=== PATIENT | male | born 1945 | race Caucasian/White ===

== ENCOUNTER 2017-12-29 22:26 | Emergency (ER) | payer MEDICARE ==
[~2017-12-29] VITALS: Ht 170.2 cm; Wt 117.9 kg
[2017-12-29] MEDS ORDERED: ATEN50 PO (23:01)
[2017-12-29] MEDS ORDERED: FURO40 PO (23:02)
[2017-12-29] MEDS ORDERED: MELO7.5 PO (23:02)
[2017-12-29] MEDS ORDERED: ATOR20 PO (23:02)
[2017-12-29] MEDS ORDERED: POTCHL20ER PO (23:02)
[2017-12-29] MEDS ORDERED: ASPI81CH PO (23:04)
[2017-12-30] MEDS ORDERED: CEPH500 PO (01:53)
== END 2017-12-30 02:09 | disposition home or self-care (01) ==
LOC: ER 22:26
DX: S61.452A Open bite of left hand, initial encounter (principal); I10 Essential (primary) hypertension; Z79.899 Other long term (current) drug therapy; Z79.82 Long term (current) use of aspirin; Z23 Encounter for immunization; W54.0XXA Bitten by dog, initial encounter
CPT/HCPCS: 12002; 90471; 90714; 99283-25

== ENCOUNTER → 2018-02-16 | Outpatient (CLI) | payer MEDICARE ==
[~2018-02-16] MED LIST: ASPI81CH PO; ATEN50 PO; ATOR20 PO; CEPH500 PO; FURO40 PO; MELO7.5 PO; POTCHL20ER PO
== END | disposition home or self-care (01) ==
LOC: LAB SHORT 07:52 → PLD 07:52
DX: D22.39 Melanocytic nevi of other parts of face (principal); D22.12 Melanocytic nevi of left eyelid, including canthus
CPT/HCPCS: 88305

== ENCOUNTER → 2022-08-23 | Outpatient (CLI) | payer MEDICARE | LOC: LAB SHORT 17:55 | DX: S21.209A Unspecified open wound of unspecified back wall of thorax without penetration into thoracic cavity, initial encounter (principal) | CPT/HCPCS: 87070; 87075; 87205 ==